=== PATIENT | male | born 1970 | race Caucasian/White ===

== ENCOUNTER 2016-11-27 10:39 | Day surgery (SDC) | payer OTHER ==
[2016-11-26 08:41] VITALS: BMI 22.7
[~2016-11-27 10:39] MED LIST: LACTATED RINGERS 1,000 ML IV SCH; LIDOCAINE 1% 20 ML VIAL (10MG/ML) FOR IV START INTRADERMA PRN
[2016-11-27 11:35] VITALS: TEMP 976.8
[2016-11-27] MEDS ORDERED: PROPOFOL 10 MG/ML 20 ML VIAL IV ONE (12:07)
[2016-11-27] MEDS ORDERED: LIDOCAINE 1% INJ 10MG/ML (20 ML MDV) ONE (12:07)
--- NOTE | 2016-11-27 12:44 | P.PCN ---
Date of Procedure: 11/27/16 Preoperative Diagnosis: Postoperative Diagnosis: Procedure(s) Performed: Procedure: Total colonoscopy. Preoperative diagnosis: Change in bowel habits. Postoperative diagnosis: Sigmoid diverticulosis with mucosal changes in the vicinity of diverticular orifices, raising the possibility of a recent bout of diverticulitis. Preparation: HalfLytely prep. Sedation: Was provided by anesthesia. Brief clinical history: The patient is a 46-year-old male who is scheduled for this evaluation because of intermittent bouts of abdominal pain and diarrhea. Had prior evaluation of his upper GI tract and this evaluation is to assess for inflammatory bowel disease, neoplasia or other pathology. Procedure: With the patient on his left lateral decubitus position and after informed consent and adequate sedation, the perianal area was inspected and it did not show any fissures or fistulas. There were no masses felt on digital rectal examination. The Olympus CFQ 160L video colonoscope was then inserted in the rectum in the usual fashion and advanced to the cecum. I intubated the ileocecal valve and examined the terminal ileum as well. There were several diverticular orifices seen scattered in the sigmoid with some mucosal changes in the vicinity of diverticular orifices raising the possibility of recent bout of diverticulitis including patches of erythema and submucosal hemorrhage and edema interspersed with otherwise normal looking mucosa. Elsewhere, the mucosa appeared healthy. The terminal ileum appeared healthy as well no polyps or tumors were seen. I retroflexed the endoscope in the rectum before the endoscope was withdrawn. The patient tolerated the procedure well. Plan: The patient was reassured. He has been doing well lately by avoiding dietary triggers for his abdominal symptoms and bowel issues. His most recent episode could have been related to acute diverticulitis. He will follow up with you as planned and I will be happy to see if his symptoms recur. For colon cancer screening, I recommend repeat exam in around 10 years. Implants: Indications for Procedure: Operative Findings: Description of Procedure:
[2016-11-27 12:51] VITALS: BP 115/72; PULSE 49; RESP 16
== END 2016-11-27 13:18 | disposition home or self-care (01) ==
LOC: ORWHC2ENDO 10:39
DX: K57.30 Diverticulosis of large intestine without perforation or abscess without bleeding (principal); R19.4 Change in bowel habit; I10 Essential (primary) hypertension; K21.9 Gastro-esophageal reflux disease without esophagitis; Z79.899 Other long term (current) drug therapy
CPT/HCPCS: 45378; J2001; J2704

== ENCOUNTER 2018-02-15 13:07 | Emergency (ER) | payer OTHER ==
[2018-02-15] MEDS ORDERED: ONDANSETRON 4 MG/2 ML VIAL IVP STA ×2 (13:26→17:09)
[2018-02-15] MEDS ORDERED: SODIUM CHLORIDE 0.9% 1,000 ML IV STA (13:26)
[2018-02-15] MEDS ORDERED: MORPHINE SULFATE 4 MG/ML SYRINGE IV STA (13:26)
--- NOTE | 2018-02-15 13:29 | ED ---
General Adult HPI - General Chief complaint: Abdominal Pain Stated complaint: Stomach/back pain/vomiting Time Seen by Provider: 02/15/18 13:22 Source: patient, RN notes reviewed Mode of arrival: ambulatory Limitations: no limitations - History of Present Illness Initial comments: Patient 47-year-old male presented to the emergency room today with a chief complaint of increased nausea vomiting. Patient does admit that his had some abdominal pain over the last few days. Patient does admit that today he had increased nausea vomiting. Was here at the hospital with his who is currently in labor. Patient mitts increased vomiting. States abdominal pain feels like a burning sensation. Patient symptoms increase anytime he eats or drinks. Patient denies any other complaints. Patient denies any recent fever, chills, shortness of breath, chest pain, numbness or tingling, dysuria or hematuria, constipation or diarrhea, headaches or visual changes, or any other complaints. - Related Data Home Medications Medication Instructions Recorded Confirmed Cetirizine HCl [Zyrtec] 10 mg PO DAILY 10/01/16 02/15/18 Omeprazole [PriLOSEC] 20 mg PO AC-BID 10/01/16 02/15/18 Cyclobenzaprine [Flexeril] 10 mg PO HS 02/15/18 02/15/18 Escitalopram [Lexapro] 20 mg PO DAILY 02/15/18 02/15/18 Gabapentin [Neurontin] 300 mg PO TID 02/15/18 02/15/18 Previous Rx's Medication Instructions Recorded Ondansetron [Zofran] 4 mg PO Q8HR PRN #15 tab 02/15/18 Allergies Allergy/AdvReac Type Severity Reaction Status Date / Time No Known Allergies Allergy Verified 02/15/18 14:00 Review of Systems ROS Statement: Those systems with pertinent positive or pertinent negative responses have been documented in the HPI. ROS Other: All systems not noted in ROS Statement are negative. Past Medical History Past Medical History: Hypertension Additional Past Medical History / Comment(s): currently having intermittent upper abdminal pain under rib area with n/v,no longer taking rx for b/p. Diverticulitis History of Any Multi-Drug Resistant Organisms: None Reported Past Surgical History: Orthopedic Surgery Additional Past Surgical History / Comment(s): tendon repair 2nd digit lft hand Past Anesthesia/Blood Transfusion Reactions: No Reported Reaction Past Psychological History: Anxiety, Panic Disorder Smoking Status: Former smoker Past Alcohol Use History: None Reported Past Drug Use History: None Reported - Past Family History Mother Family Medical History: Cancer Additional Family Medical History / Comment(s): ruptured aorta Father History Unknown: Yes Family Medical History: No Reported History General Exam - General Exam Comments Initial Comments: General: The patient is awake and alert, in mild distress. Eye: Pupils are equal, round and reactive to light, extra-ocular movements are intact. No nystagmus. There is normal conjunctiva bilaterally. No signs of icterus. Ears, nose, mouth and throat: There are moist mucous membranes and no oral lesions. Neck: The neck is supple, there is no tenderness or JVD. Cardiovascular: There is a regular rate and rhythm. No murmur, rub or gallop is appreciated. Respiratory: Lungs are clear to auscultation, respirations are non-labored, breath sounds are equal. No wheezes, stridor, rales, or rhonchi. Gastrointestinal: Soft on palpation. Patient does have tenderness both on the upper and lower quadrant. No rebound or guarding. No CVA tenderness. Musculoskeletal: Normal ROM, no tenderness. Strength 5/5. Sensation intact. Pulses equal bilaterally 2+. Neurological: A&O x 3. CN II-XII intact, There are no obvious motor or sensory deficits. Coordination appears grossly intact. Speech is normal. Skin: Skin is warm and dry and no rashes or lesions are noted. Psychiatric: Cooperative, appropriate mood & affect, normal judgment. Limitations: no limitations Course Vital Signs 02/15/18 02/15/18 02/15/18 13:14 14:09 15:13 Temperature 97.5 F L 97.5 F L Pulse Rate 80 77 72 Respiratory 18 20 18 Rate Blood Pressure 181/117 153/87 144/91 O2 Sat by Pulse 100 100 99 Oximetry Medical Decision Making - Medical Decision Making Case discussed in detail with attending physician Dr. Lu. Patient reexamined at this time shows no signs of distress is resting comfortably. Vitals are much improved after medications given here in the patient states he is feeling better. His abdomen is soft on palpation. Patient's labs reviewed does show 17,000 white count. Patient had multiple episodes of nausea vomiting this morning. Patient's CT the abdomen and pelvis does show evidence for diverticulosis without evidence for diverticulitis. There was contrast seen early in the renal system down into the bladder. Patient denied having any recent imaging. Options were discussed with the patient about admission to the hospital for his abdominal pain with nausea vomiting. He has declined. He states that he would like to return and go back up to labor and delivery where his is currently in labor. Patient will be given nausea medication go home with. He is advised return. He states he does have an appointment with his family assistant - Lab Data Result diagrams: 02/15/18 13:57 02/15/18 13:57 Lab Results 02/15/18 02/15/18 02/15/18 Range/Units 13:57 13:57 16:26 WBC 17.8 H (3.8-10.6) k/uL RBC 4.96 (4.30-5.90) m/uL Hgb 15.5 (13.0-17.5) gm/dL Hct 44.6 (39.0-53.0) % MCV 90.1 (80.0-100.0) fL MCH 31.2 (25.0-35.0) pg MCHC 34.7 (31.0-37.0) g/dL RDW 12.5 (11.5-15.5) % Plt Count 326 (150-450) k/uL Neutrophils % 88 % Lymphocytes % 7 % Monocytes % 4 % Eosinophils % 1 % Basophils % 0 % Neutrophils # 15.6 H (1.3-7.7) k/uL Lymphocytes # 1.2 (1.0-4.8) k/uL Monocytes # 0.7 (0-1.0) k/uL Eosinophils # 0.2 (0-0.7) k/uL Basophils # 0.0 (0-0.2) k/uL Sodium 143 (137-145) mmol/L Potassium 4.2 (3.5-5.1) mmol/L Chloride 107 (98-107) mmol/L Carbon Dioxide 22 (22-30) mmol/L Anion Gap 14 mmol/L BUN 16 (9-20) mg/dL Creatinine 0.87 (0.66-1.25) mg/dL Est GFR (CKD-EPI)AfAm >90 (>60 ml/min/1.73 sqM) Est GFR (CKD-EPI)NonAf >90 (>60 ml/min/1.73 sqM) Glucose 145 H (74-99) mg/dL Calcium 10.6 H (8.4-10.2) mg/dL Total Bilirubin 0.9 (0.2-1.3) mg/dL AST 22 (17-59) U/L ALT 24 (21-72) U/L Alkaline Phosphatase 81 (38-126) U/L Total Protein 8.0 (6.3-8.2) g/dL Albumin 4.9 (3.5-5.0) g/dL Amylase 91 (30-110) U/L Lipase 59 (23-300) U/L Urine Color Light Yellow Urine Appearance Clear (Clear) Urine pH 8.5 H (5.0-8.0) Ur Specific [place] 1.048 H (1.001-1.035) Urine Protein Negative (Negative) Urine Glucose (UA) Negative (Negative) Urine Ketones Negative (Negative) Urine Blood Negative (Negative) Urine Nitrite Negative (Negative) Urine Bilirubin Negative (Negative) Urine Urobilinogen <2.0 (<2.0) mg/dL Ur Leukocyte Esterase Negative (Negative) Disposition Clinical Impression: Nausea & vomiting, Abdominal pain Disposition: HOME SELF-CARE Condition: Good Instructions: Abdominal Pain (ED) Additional Instructions: Please use medication as discussed. Please follow-up with family assistant/ family doctor in the next 2 days. Please return to emergency room if the symptoms increase or worsen or for any other concerns. Prescriptions: Ondansetron [Zofran] 4 mg PO Q8HR PRN #15 tab PRN Reason: Nausea Is patient prescribed a controlled substance at d/c from ED?: No Referrals: Masha Phillips MD [Primary Care Provider] - 1-2 days Time of Disposition: 17:12
[2018-02-15 14:23] LABS: Basophils % (A) 0 %; Eosinophils # (A) 0.2 k/uL (0-0.7); Eosinophils % (A) 1 %; HCT 44.6 % (39.0-53.0); HGB 15.5 gm/dL (13.0-17.5); Lymphocytes # (A) 1.2 k/uL (1.0-4.8); Lymphocytes % (A) 7 %; MCH 31.2 pg (25.0-35.0); MCHC 34.7 g/dL (31.0-37.0); MCV 90.1 fL (80.0-100.0); Mean Platelet Volume 7.2; Monocytes # (A) 0.7 k/uL (0-1.0); Monocytes % (A) 4 %; Neutrophils # (A) 15.6 k/uL (1.3-7.7); Neutrophils % (A) 88 %; Platelet Count 326 k/uL (150-450); RBC 4.96 m/uL (4.30-5.90); RDW 12.5 % (11.5-15.5); WBC 17.8 k/uL (3.8-10.6)
[2018-02-15 14:36] LABS: ALT 24 U/L (21-72); AST 22 U/L (17-59); Albumin 4.9 g/dL (3.5-5.0); Alkaline Phosphatase 81 U/L (38-126); Amylase 91 U/L (30-110); Anion Gap 14 mmol/L; Blood Urea Nitrogen 16 mg/dL (9-20); Calcium 10.6 mg/dL (8.4-10.2); Carbon Dioxide 22 mmol/L (22-30); Chloride 107 mmol/L (98-107); Glucose 145 mg/dL (74-99); Lipase 59 U/L (23-300); Potassium 4.2 mmol/L (3.5-5.1); Sodium 143 mmol/L (137-145); Total Bilirubin 0.9 mg/dL (0.2-1.3)
[2018-02-15] MEDS ORDERED: HYDROmorphone 1 MG/ML 1 ML SYRINGE IVP STA ×2 (14:55→17:09)
[2018-02-15 15:14] VITALS: RESP 18
--- NOTE | 2018-02-15 15:29 | CT ---
EXAMINATION TYPE: CT abdomen pelvis w con DATE OF EXAM: 02/15/2018 COMPARISON: NONE HISTORY: 47-year-old male with abdominal pain, nausea, vomiting, history of diverticulitis. TECHNIQUE: Contiguous axial scanning of the abdomen and pelvis following administration of 100 ml Iso ellis 300 IV contrast. Delayed images through the kidneys and coronal/sagittal reconstructions perform ed. CT DLP: 628.2 mGycm Automated exposure control for dose reduction was used. FINDINGS: Heart normal size without pericardial effusion. Tiny hiatal hernia. Lung bases clear without pleural effusion. Liver mildly enlarged measuring 18.8 cm. No focal liver lesion or biliary ductal dilatation. Portal v enous system is patent. Gallbladder, adrenal glands, spleen, and pancreas within normal limits. Indeterminate 1 cm hypodense lesion midpole left kidney too small for accurate CT characterization. F ollow-up is recommended. There seems to be accumulation of contrast in the bilateral renal collecting systems even on the port al venous phase of imaging. Minimal contrast is also seen being excreted into the bladder compatible with previous intravenous contrast administration prior to this study. No dilated small bowel, free fluid, or free air. Scattered nonenlarged mesenteric lymph nodes. Normal appendix. Scattered mild stool burden. Sigmoid diverticulosis without pericolonic inflammatory change. Bladder is urine distended. Prostate gland measures 4.4 cm. No abnormal fluid collection in the pelvi s or pelvic lymphadenopathy. Bones: No osseous destructive process. IMPRESSION: 1. SOME CONTRAST IS SEEN WITHIN THE RENAL COLLECTING SYSTEMS AND BEGINNING TO ACCUMULATE IN THE BLADD ER EVEN ON THE EARLY PHASE OF IMAGING. THIS SUGGESTS THE ADMINISTRATION OF INTRAVENOUS CONTRAST EVEN PRIOR TO THE STUDY. CLINICALLY CORRELATE. 2. SIGMOID DIVERTICULOSIS WITHOUT EVIDENCE FOR ACUTE DIVERTICULITIS. 3. SIX-MONTH FOLLOW-UP RENAL ULTRASOUND RECOMMENDED TO REASSESS THE 1 CM LEFT MIDPOLE LESION, POSSIBL E CYST.
[2018-02-15 16:52] LABS: Appearance,Urine Clear (Clear); Bilirubin,Urine Negative (Negative); Blood,Urine Negative (Negative); Color,Urine Light Yellow; Glucose,Urine (UA) Negative (Negative); Ketones,Urine Negative (Negative); Leukocyte Esterase,Urine Negative (Negative); Nitrite,Urine Negative (Negative); PH, Urine 8.5 (5.0-8.0); Protein,Urine Negative (Negative); Urobilinogen,Urine <2.0 mg/dL (<2.0)
[2018-02-15 16:57] LABS: Specific Gravity,Urine 1.048 (1.001-1.035)
[2018-02-15] MEDS ORDERED: ONDANSETRON 4 MG ODT STARTER PACK 2 TAB BTL PO STA (17:09)
[2018-02-15 17:47] VITALS: BP 122/84; PULSE 80; TEMP 97.8
== END 2018-02-15 17:46 | disposition home or self-care (01) ==
LOC: EC 13:07
DX: R10.9 Unspecified abdominal pain (principal); R11.2 Nausea with vomiting, unspecified; M54.9 Dorsalgia, unspecified; I10 Essential (primary) hypertension; F41.0 Panic disorder [episodic paroxysmal anxiety]; Z79.899 Other long term (current) drug therapy; Z87.891 Personal history of nicotine dependence
CPT/HCPCS: 36415; 80053; 82150; 83690; 85025; 81003; 74177; 99284; 96374; 96375 ×2; 96376 ×2; 96361; J2270; J2405; J1170; S0119; Q9967

== ENCOUNTER → 2018-08-18 | Outpatient (CLI) | payer OTHER ==
--- NOTE | 2018-08-18 10:24 | US ---
EXAMINATION TYPE: US kidneys/renal and bladder DATE OF EXAM: 08/18/2018 COMPARISON: CT 02/15/18 CLINICAL HISTORY: R93.5Abnormal findings on diagnostic imaging of ot. EXAM MEASUREMENTS: Right Kidney: 10.7 x 5.7 x 4.3 cm Left Kidney: 12.4 x 6.0 x 5.4 cm Post Void Residual Volume: 5.0 mL Right Kidney: No hydronephrosis or masses seen Left Kidney: Mid pole cyst = 1.2 x 1.2 x 0.9 cm Bladder: wnl Bilateral Jets seen: Yes Normal Post Void Residual: Yes There is no evidence for hydronephrosis at this point in time. No nephrolithiasis is seen. No avelino s are identified. The urinary bladder is anechoic. Bilateral ureteral jets are seen. IMPRESSION: Simple cyst midpole left kidney. Otherwise unremarkable study.
== END | disposition home or self-care (01) ==
LOC: RADUSWWP 09:31
PROVIDERS: ATTEND Family Medicine
DX: N28.1 Cyst of kidney, acquired (principal)
CPT/HCPCS: 76770